=== PATIENT | female | born 1995 | race Caucasian/White ===

== ENCOUNTER 2020-10-20 09:25 | Emergency (ER) | payer OTHER ==
[~2020-10-20 09:25] MED LIST: BENADRYL25 MG PO; PEPCID AC20 MG PO; PREDNISONE 20MG20 MG PO
[2020-10-20 10:05] LABS: BASOPHIL 0.5 % (0-2); EOSINOPHIL 1.8 % (0-5); HCT 34.2 % (37.0-47.0); HGB 11.7 g/dl (12.5-16.0); MCH 28.9 pg (25.0-31.0); MCHC 34.2 g/dL (32.0-36.0); MCV 84.4 fL (78.0-100.0); MONOCYTE 6.6 % (0-12); MPV 11.8 fL (6.0-9.5); NRBC 0; PLT 145 K/uL (150-400); RBC 4.05 M/uL (4.20-5.40); RDW 14.4 % (11.5-14.0); WBC 10.2 K/uL (4.0-10.5)
[2020-10-20 10:16] LABS: ALBUMIN 2.6 g/dL (3.4-5.0); BILIRUBIN - TOTAL 0.2 mg/dL (0.2-1.0); BUN/CREAT RATIO (CALC) 17.8 RATIO; CREATININE 0.45 mg/dL (0.51-0.95); GLOBULIN (CALCULATION) 4.2 g/dL; TOTAL PROTEIN 6.8 g/dL (6.4-8.2)
[2020-10-20 10:22] LABS: BILIRUBIN NEGATIVE (NEGATIVE); BLOOD NEGATIVE Ery/uL (NEGATIVE); COLOR YELLOW (YELLOW); GLUCOSE (U) NORMAL (NORMAL); LEUKOCYTES 2+ Leu/uL (NEGATIVE); NITRITE NEGATIVE (NEGATIVE); PROTEIN TRACE (LOW) mg/dL (NEGATIVE); SPECIFIC GRAVITY >=1.030 (1.001-1.030); UROBILINOGEN 0.2 mg/dL (0.2-1.0)
[2020-10-20 10:23] LABS: CLARITY CLOUDY (CLEAR)
[2020-10-20 10:31] LABS: BACTERIA 2+; SQUAMOUS EPITHELIAL CELLS 20-50; URINARY RBC RARE
[2020-10-20] MEDS ORDERED: AUGMENTIN 875-1 EACH PO (11:38)
[2020-10-20] MEDS ORDERED: ZOFRAN4 M1 PO (11:38)
== END 2020-10-20 12:05 | disposition home or self-care (01) ==
LOC: FER 09:25
PROVIDERS: Emergency Medicine
DX: O23.43 Unspecified infection of urinary tract in pregnancy, third trimester (principal); O99.283 Endocrine, nutritional and metabolic diseases complicating pregnancy, third trimester; E86.0 Dehydration; Z3A.30 30 weeks gestation of pregnancy
CPT/HCPCS: 36415; 80053; 81001; 83690; 85025; 87088; J0696; J2405; J7030

== ENCOUNTER 2020-12-27 01:14 | Inpatient (IN) | payer OTHER ==
[~2020-12-27] VITALS: Ht 165.1 cm; Wt 94.8 kg
[~2020-12-27 01:14] MED LIST changes: +AUGMENTIN 875-1 EACH PO; +ZOFRAN4 M1 PO
[2020-12-27 02:24] LABS: BILIRUBIN 1+ mg/dL (NEGATIVE); BLOOD 1+ Ery/uL (NEGATIVE); CLARITY CLEAR (CLEAR); COLOR YELLOW (YELLOW); GLUCOSE (U) TRACE mg/dL (NORMAL); LEUKOCYTES TRACE Leu/uL (NEGATIVE); NITRITE NEGATIVE (NEGATIVE); PROTEIN 1+ mg/dL (NEGATIVE); SPECIFIC GRAVITY >=1.030 (1.001-1.030); UROBILINOGEN 0.2 mg/dL (0.2-1.0)
[2020-12-27 02:26] LABS: AMPHETAMINES NEGATIVE (NEGATIVE); BARBITURATES NEGATIVE (NEGATIVE); ECSTASY (MDMA) NEGATIVE (NEGATIVE); MARIJUANA (THC) NEGATIVE (NEGATIVE); METHADONE NEGATIVE (NEGATIVE); OPIATES NEGATIVE (NEGATIVE); OXYCODONE NEGATIVE (NEGATIVE)
[2020-12-27 02:30] LABS: BACTERIA 2+
[2020-12-27 02:31] LABS: MUCOUS TRACE
[2020-12-27 06:40] LABS: HCT 37.9 % (37.0-47.0); HGB 12.7 g/dl (12.5-16.0); MCH 28.2 pg (25.0-31.0); MCHC 33.5 g/dL (32.0-36.0); MCV 84.2 fL (78.0-100.0); RBC 4.5 M/uL (4.20-5.40); RDW 15.1 % (11.5-14.0); WBC 15.5 K/uL (4.0-10.5)
[2020-12-28 06:21] LABS: HCT 34.1 % (37.0-47.0); HGB 11.7 g/dl (12.5-16.0); MCH 29.1 pg (25.0-31.0); MCHC 34.3 g/dL (32.0-36.0); MCV 84.8 fL (78.0-100.0); MPV 12.9 fL (6.0-9.5); RBC 4.02 M/uL (4.20-5.40); RDW 15.3 % (11.5-14.0); WBC 16.7 K/uL (4.0-10.5)
== END 2020-12-29 15:33 | disposition home or self-care (01) | DRG 806 ==
LOC: FOD 01:14 → FOB 01:15 → FOD 06:23 → FOB 06:24
PROVIDERS: ADMIT Obstetrics & Gynecology
PROC: 10E0XZZ Delivery of Products of Conception, External Approach (ICD-10-PCS; principal; 2020-12-27)
PROC: 0KQM0ZZ Repair Perineum Muscle, Open Approach (ICD-10-PCS; 2020-12-27)
PROC: 0UQKXZZ Repair Hymen, External Approach (ICD-10-PCS; 2020-12-27)
DX: O99.02 Anemia complicating childbirth (principal); O99.12 Other diseases of the blood and blood-forming organs and certain disorders involving the immune mechanism complicating childbirth; Z37.0 Single live birth; O99.354 Diseases of the nervous system complicating childbirth; O98.82 Other maternal infectious and parasitic diseases complicating childbirth; Z3A.39 39 weeks gestation of pregnancy; D69.6 Thrombocytopenia, unspecified; G43.909 Migraine, unspecified, not intractable, without status migrainosus; Z20.822 Contact with and (suspected) exposure to COVID-19; O71.89 Other specified obstetric trauma; O70.1 Second degree perineal laceration during delivery; O26.893 Other specified pregnancy related conditions, third trimester; O99.52 Diseases of the respiratory system complicating childbirth; J45.909 Unspecified asthma, uncomplicated; Z67.41 Type O blood, Rh negative
CPT/HCPCS: 36415; 80305; 81001; 86850; 86900; 86901; J2405; J3010; J7120; U0002

== ENCOUNTER 2020-12-31 16:34 | Emergency (ER) | payer OTHER ==
[2020-12-31 17:13] LABS: ALBUMIN 2.4 g/dL (3.4-5.0); BILIRUBIN - TOTAL 0.4 mg/dL (0.2-1.0); BUN/CREAT RATIO (CALC) 10.9 RATIO; CREATININE 0.64 mg/dL (0.51-0.95); GLOBULIN (CALCULATION) 4.3 g/dL; POTASSIUM 3.6 mmol/L (3.5-5.1); TOTAL PROTEIN 6.7 g/dL (6.4-8.2)
[2020-12-31 17:16] LABS: BASOPHIL 0.4 % (0-2); EOSINOPHIL 0.3 % (0-5); HCT 34.8 % (37.0-47.0); HGB 11.4 g/dl (12.5-16.0); LYMPHOCYTE 5.9 % (15-48); MCH 27.9 pg (25.0-31.0); MCHC 32.8 g/dL (32.0-36.0); MCV 85.3 fL (78.0-100.0); MONOCYTE 6.7 % (0-12); MPV 11.8 fL (6.0-9.5); NEUTROPHIL 84.8 % (41-80); NRBC 0; PLT 159 K/uL (150-400); RBC 4.08 M/uL (4.20-5.40); RDW 15.4 % (11.5-14.0); WBC 10.3 K/uL (4.0-10.5)
[2020-12-31 18:03] LABS: BILIRUBIN 1+ mg/dL (NEGATIVE); BLOOD 3+ Ery/uL (NEGATIVE); GLUCOSE (U) NORMAL (NORMAL); LEUKOCYTES 2+ Leu/uL (NEGATIVE); NITRITE NEGATIVE (NEGATIVE); PROTEIN 3+ mg/dL (NEGATIVE); SPECIFIC GRAVITY 1.025 (1.001-1.030)
[2020-12-31 18:04] LABS: CLARITY CLOUDY (CLEAR); COLOR RED (YELLOW)
[2020-12-31 18:07] LABS: BACTERIA 2+; URINARY RBC TNTC; URINARY WBC TNTC
[2020-12-31 18:26] LABS: CORONAVIRUS 2019 SARS-COV-2 NEGATIVE (NEGATIVE); INFLUENZA A NAA NEGATIVE (NEGATIVE)
[2020-12-31] MEDS ORDERED: AUGMENTIN 875-1 EACH PO (20:22)
== END 2020-12-31 20:40 | disposition home or self-care (01) ==
LOC: FER 16:34
PROVIDERS: Nurse Practitioner Family
DX: N39.0 Urinary tract infection, site not specified (principal); Z20.822 Contact with and (suspected) exposure to COVID-19
CPT/HCPCS: 36415; 76856; 80053; 81001; 85025; 87040; 87088; J0696; J1100; J1200; J7030; J7120; U0002